=== PATIENT | female | born 1955 | race Caucasian/White ===

== ENCOUNTER 2016-11-06 13:16 | Outpatient (CLI) ==
[2016-04-22 12:04] VITALS: BMI 23.3
[2016-11-07 13:33] LABS: CREATININE, URINE 39.9 mg/dL (Not Estab.)
[2016-11-12 19:09] LABS: FREE URINE CORTISOL MEASURE 3 ug/L (Undefined)
[2016-11-13 06:14] LABS: NORMETANEPHRINE, PL 33 pg/mL (0-145)
[2016-11-13 07:51] LABS: 24 HR FREE URINE CORTISOL 8 ug/24 hr (0-50); ALDOSTERONE 3.3 ng/dL (0.0-30.0); METANEPHRINE, PL <10 pg/mL (0-62)
== END 2016-11-06 13:17 | disposition home or self-care (01) ==
LOC: LAB 13:16
PROVIDERS: ATTEND Internal Medicine
DX: D44.12 Neoplasm of uncertain behavior of left adrenal gland (principal)
CPT/HCPCS: 36415; 81050; 82530; 82570